=== PATIENT | female | born 1975 | race Caucasian/White ===

== ENCOUNTER 2019-09-03 16:42 | Emergency (ER) | payer OTHER, SELFPAY ==
--- NOTE | ~2019-09-03 | XR_ITS ---
EXAMINATION: XR chest 2V DATE: 09/03/2019 17:15 INDICATION: Left-sided chest tightness and dizziness TECHNIQUE: PA and lateral views of the chest are obtained. COMPARISON: None available FINDINGS: The lungs are free of acute opacities. There is no pleural effusion or pneumothorax. The ca rdiomediastinal silhouette is normal. There is mild thoracic spondylosis. IMPRESSION: 1. No acute cardiopulmonary abnormality. Reviewed, dictated and finalized at location A. AL CARETAKER
--- NOTE | 2019-09-03 16:48 | ECG_ITS ---
Measurements Intervals [place] Rate: 92 P: 49 MI: 152 QRS: 2 QRSD: 76 T: 29 QT: 359 QTc: 445 Interpretive Statements SINUS RHYTHM LOW QRS VOLTAGE IN PRECORDIAL LEADS BORDERLINE R WAVE PROGRESSION, ANTERIOR LEADS BORDERLINE T WAVE ABNORMALITY- INFERIOR LEADS BORDERLINE ECG Electronically Signed On 09-04-2019 6:56:26 [employer] by Ayan Harden D.O.
[2019-09-03 16:49] VITALS: BP 166/108; PULSE 96; RESP 19; TEMP 36.6; O2SAT 96
[2019-09-03 17:03] LABS: Basophils Absolute Auto 0.1 K/mm3 (0.0-0.1); Basophils Percent Auto 0.7 % (0.2-1.2); Eosinophils Absolute Auto 0.1 K/mm3 (0-0.3); Eosinophils Percent Auto 1.4 % (0-4.4); Hemoglobin 12.9 g/dL (12.0-15.0); Immature Granulocyte Absolute 0.02 K/mm3 (0.00-0.031); Immature Granulocyte Percent A 0.2 % (0-0.5); Lymphocytes Absolute Auto 3.35 K/mm3 (0.9-3.2); Lymphocytes Percent Auto 36.5 % (18.3-44.2); Mean Corpuscular HGB Conc 31.5 g/dl (32-36); Mean Corpuscular Hemoglobin 28.8 pg (26-34); Mean Corpuscular Volume 91.5 fl (80-100); Mean Platelet Volume 10.1 fl (7.4-10.4); Monocytes Absolute Auto 0.4 K/mm3 (0.1-0.6); Monocytes Percent Auto 4.7 % (2.6-8.5); Neutrophils Absolute Auto 5.2 K/mm3 (1.3-6.7); Neutrophils Percent Auto 56.5 % (45.5-73.1); Platelet Count Result 343 k/mm3 (150-375); Red Blood Count 4.48 M/mm3 (4.2-5.4); Red Cell Distribution Width 13.8 % (11.5-14.5); White Blood Count 9.2 K/mm3 (4.5-10.0)
[2019-09-03 17:11] LABS: Prothrombin Time 13.1 Seconds (11.1-14.7)
[2019-09-03 17:12] LABS: Partial Thromboplastin Time 31.4 SECONDS (22.3-36.8)
[2019-09-03 17:14] LABS: Blood Urea Nitrogen 14 mg/dL (7-17); Calcium 9.2 mg/dL (8.4-10.2); Carbon Dioxide 23 mmol/L (22-30); Chloride 103 mmol/L (98-107); Estimated CRCL calculation 85 ml/min; Estimated Glomerular Filt Rate > 60; Glucose 114 mg/dL (65-105); Potassium 3.6 mmol/L (3.4-5.0); Sodium 139 mmol/L (137-145)
[2019-09-03 17:26] LABS: Troponin I < 0.012 ng/mL (0.000-0.034)
[2019-09-03 20:02] VITALS: BP 156/90; PULSE 68; RESP 23; TEMP 37.1; O2SAT 96
[2019-09-03 20:03] VITALS: PULSE 66; O2SAT 96
[2019-09-03] MEDS: ASPIRIN 81 MG CHEWABLE TABLET 324 MG PO (20:08)
--- NOTE | 2019-09-03 20:13 | ED.GENADULT ---
HPI - General Adult General Chief complaint: Chest Pain <Vin Lane PA-C - Last Filed: 09/03/19 20:52> Stated complaint: chest pain <Vin Lane PA-C - Last Filed: 09/03/19 20:52> Time Seen by Provider: 09/03/19 19:43 <Vin Lane PA-C - Last Filed: 09/03/19 20:52> Source: patient <Vin Lane PA-C - Last Filed: 09/03/19 20:52> Mode of arrival: ambulatory <Vin Lane PA-C - Last Filed: 09/03/19 20:52> Limitations: no limitations <Vin Lane PA-C - Last Filed: 09/03/19 20:52> History of Present Illness HPI narrative: Patient is a 44-year-old female who presents to emergency department for evaluation of having an episode of right chest pain to the left chest and left upper back that began today patient notes that she felt heart fluttering followed by the pain patient notes that she had had a similar occurrence in the past when she had a vagal episode without the pain however. Patient took ibuprofen has had some improvement. Patient denies any dyspnea URI symptoms lightheadedness or dizziness <Vin Lane PA-C - Last Filed: 09/03/19 20:52> Related Data Allergies/adverse reactions: Allergies Allergy/AdvReac Type Severity Reaction Status Date / Time Sulfa (Sulfonamide Allergy Numbness Verified 09/03/19 20:07 Antibiotics) sulfa Allergy Intermediate numbness Uncoded 09/03/19 20:07 <Vin Lane PA-C - Last Filed: 09/03/19 20:52> Review of Systems Review of Systems: All systems reviewed & are unremarkable except as noted in HPI and below <Vin Lane PA-C - Last Filed: 09/03/19 20:52> [facility] Past Medical History Medical History: Medical History (Updated 09/04/19 @ 00:00 by Ashley Westbrook) Obesity <Vin Lane PA-C - Last Filed: 09/03/19 20:52> Social History Social History: Social History (Updated 09/03/19 @ 20:[address] PA-C) Smoking status: Former smoker Tobacco type: e-cigarettes Gender identity (if verbalized by the patient): Female <FIDE Leon Last Filed: 09/03/19 20:52> Exam Narrative: Exam Narrative: GENERAL: Well-appearing, obese, and in no acute distress. HEAD: Normocephalic, atraumatic. EYES: PERRLA and EOMI. ENT: Nares clear, no rhinorrhea or epistaxis. Mucous membranes moist. Oropharynx without tonsillar hypertrophy exudate or other lesions. NECK: Supple. No adenopathy or masses. CHEST: Clear to auscultation. No respiratory distress. No wheezes rales or rhonchi HEART: Regular rate and rhythm. No murmur heard. Normal peripheral pulses. ABDOMEN: Soft, nontender, nondistended EXTREMITIES: Normal range of motion. No edema. SKIN: Warm, dry, no rash. NEURO: No focal deficits. Alert and oriented x3. Cranial nerves II through XII grossly intact PSYCH: Normal mood and affect. <FIDE Leon Last Filed: 09/03/19 20:52> Course Course Emergency Course: Patient resting comfortably in the room in no distress aware of case findings treatment plan and diagnosis <FIDE Leon Last Filed: 09/03/19 20:52> Vital Signs Vital signs: Vital Signs Temperature 36.6 C 09/03/19 16:49 Pulse Rate 96 09/03/19 16:49 Respiratory Rate 19 09/03/19 16:49 Blood Pressure 166/108 H 09/03/19 16:49 Pulse Oximetry 96 09/03/19 16:49 Temperature 37.1 C 09/03/19 20:02 Pulse Rate 70 09/03/19 21:21 Respiratory Rate 15 09/03/19 21:21 Blood Pressure 143/95 H 09/03/19 21:21 Pulse Oximetry 96 09/03/19 21:21 <FIDE Leon Last Filed: 09/03/19 20:52> Vital Signs Temperature 36.6 C 09/03/19 16:49 Pulse Rate 96 09/03/19 16:49 Respiratory Rate 19 09/03/19 16:49 Blood Pressure 166/108 H 09/03/19 16:49 Pulse Oximetry 96 09/03/19 16:49 Temperature 37.1 C 09/03/19 20:02 Pulse Rate 70 02/13/20 21:21 Respiratory Rate 15 09/03/19 21:21 Blood Pressure 143/95 H 0
[2019-09-03 20:33] LABS: D Dimer 0.43 ug/mL (<0.48)
[2019-09-03 20:46] LABS: Troponin I < 0.012 ng/mL (0.000-0.034)
[2019-09-03 21:21] VITALS: BP 143/95; PULSE 70; RESP 15; O2SAT 96
== END 2019-09-03 21:23 | disposition home or self-care (01) ==
PROVIDERS: Emergency Medicine Emergency Medical Services; Emergency Provider Emergency Medicine; PCP Family Medicine
DX: R07.9 Chest pain, unspecified (principal); E66.9 Obesity, unspecified; Z68.35 Body mass index [BMI] 35.0-35.9, adult; Z87.891 Personal history of nicotine dependence; R94.31 Abnormal electrocardiogram [ECG] [EKG]
CPT/HCPCS: 36415; 71046; 80048; 84484; 85025; 85380; 85610; 85730; 93005; 99284; A9270

== ENCOUNTER 2021-06-09 19:37 | Emergency (ER) | payer OTHER, SELFPAY ==
--- NOTE | ~2021-06-09 | XR_ITS ---
EXAMINATION: XR foot RT min 3V DATE: 06/09/2021 19:49 INDICATION: Right foot injury with medial foot pain TECHNIQUE: Dorsoplantar, two oblique and lateral views of the right foot were obtained. COMPARISON: None. FINDINGS: Small minimally displaced fracture at the dorsal aspect of the second metatarsal which appears to ext end to the rim of the proximal articular surface and which is best appreciated on the lateral project ion. No other fractures identified. Alignment is otherwise normal. Joint spaces are relatively preser meryl. Small Achilles and plantar calcaneal spurs. Soft tissues are unremarkable. IMPRESSION: 1. Small minimally displaced fracture at the dorsal base of the second metatarsal. Reviewed, dictated and finalized at location A. [employer] IMPRESSION: 1. Small minimally displaced fracture at the dorsal base of the second metatars al.
[2021-06-09 19:51] VITALS: BP 161/86; PULSE 90; RESP 16; TEMP 36.9; O2SAT 99
--- NOTE | 2021-06-09 19:56 | ED.LOWEXIN ---
HPI - Extremity Injury (Lower) General Chief Complaint: Extremity Injury, Lower Stated Complaint: Right Foot Pain Time Seen by Provider: 06/09/21 19:52 Source: patient, RN notes reviewed and old records reviewed Mode of arrival: ambulatory Limitations: no limitations History of Present Illness HPI Narrative: 46-year-old female who presents to [facility] with complaint of right foot pain after falling over her dog this evening about 1 hour ago. She reports that she has pain to the dorsal medial aspect of her right foot, denies any tingling or numbness to her right foot. Patient has strong pulses to her right foot, minimal swelling present to dorsal aspect of her right foot. MD complaint: foot injury Onset (ago): hour(s) (1) Related Data Allergies Allergy/AdvReac Type Severity Reaction Status Date / Time Sulfa (Sulfonamide Allergy Intermediate Numbness Verified 06/12/21 13:00 Antibiotics) sulfa Allergy Intermediate numbness Uncoded 06/09/21 19:57 Review of Systems Review of Systems: CONSTITUTIONAL: Denies fever, chills, or sweats. EYES: Denies visual changes, redness, or discharge. ENT: Denies rhinorrhea, congestion, sore throat, or otalgia. CARDIOVASCULAR: Denies chest pain, palpitations, or edema. RESPIRATORY: Denies cough or dyspnea. GASTROINTESTINAL: Denies abdominal pain, nausea, vomiting, or diarrhea. GENITOURINARY: Denies dysuria or hematuria. SKIN: Denies rash or itching. MUSCULOSKELETAL: Denies back pain,positive for pain to medial dorsal aspect of right foot, or myalgia. NEUROLOGIC: Denies headache, numbness, or weakness. PSYCHIATRIC: Denies anxiety or depression. All systems reviewed & are unremarkable except as noted in HPI and below PMFSH Past Medical History Medical History Obesity Surgical History Surgical History (Updated 06/12/21 @ 13:01 by Amy Martin NP) H/O exploratory laparotomy endometriosis H/O release of tendon left foot plantar fasciitis Social History Social History (Updated 06/12/21 @ 13:01 by Amy Martin NP) Smoking status: Current every day smoker Tobacco type: e-cigarettes/vaping Alcohol intake: current Alcohol use details: social Substance use: never Living arrangements: with family Gender identity (if verbalized by the patient): Female Comments At time of signature, agree with nursing past medical, surgical, social and family history. There is no relevant family history pertinent to the presenting complaint Exam Narrative: GENERAL: Well-appearing, well-nourished, and in no acute distress. HEAD: Normocephalic, atraumatic. EYES: PERRLA and EOMI. ENT: Nares clear, no rhinorrhea or epistaxis. Mucous membranes moist. NECK: Supple.no lymphadenopathy CHEST: Clear to auscultation. No respiratory distress. HEART: Regular rate and rhythm. No murmur heard. Normal peripheral pulses. ABDOMEN: Soft, nontender, nondistended, normal active bowel sounds. EXTREMITIES: Normal range of motion.mild edema to dorsal medial aspect of right foot. Mobility, sensation and circulation is intact to her right foot Pain along the medial aspect of dorsal right foot. SKIN: Warm, dry, no rash. NEURO: No focal deficits. Alert and oriented x3. Course Vital Signs Vital signs: Vital Signs Temperature 36.9 C 06/09/21 19:51 Pulse Rate 90 06/09/21 19:51 Respiratory Rate 16 06/09/21 19:51 Blood Pressure 161/86 H 06/09/21 19:51 Pulse Oximetry 99 06/09/21 19:51 Temperature 36.9 C 06/09/21 19:51 Pulse Rate 90 06/09/21 19:51 Respiratory Rate 16 06/09/21 19:51 Blood Pressure 161/86 H 06/09/21 19:51 Pulse Oximetry 99 06/09/21 19:51 Procedures Orthopedic Splinting/Casting right foot: Splinting/Casting Date: 06/09/21 Splinting/Casting Time: 20:20 Side: right Lower Extremity Injury Location: foot Pre-Formed: post op shoe Pre-Procedure Neuro Vascular
== END 2021-06-09 20:30 | disposition home or self-care (01) ==
PROVIDERS: Emergency Provider Registered Nurse; PCP Family Medicine
DX: S92.321A Displaced fracture of second metatarsal bone, right foot, initial encounter for closed fracture (principal); W01.0XXA Fall on same level from slipping, tripping and stumbling without subsequent striking against object, initial encounter; E66.9 Obesity, unspecified; F17.200 Nicotine dependence, unspecified, uncomplicated
CPT/HCPCS: 73630; 99214; G0463